=== PATIENT | female | born 1955 | race Caucasian/White ===

== ENCOUNTER → 2018-11-01 | Outpatient (CLI) | payer OTHER | LOC: COL.VAS 12:15 | DX: Z13.6 Encounter for screening for cardiovascular disorders (principal); M79.89 Other specified soft tissue disorders ==

== ENCOUNTER 2021-11-27 07:01 | Day surgery (SDC) | payer MEDICARE, OTHER ==
[~2021-11-27] VITALS: Ht 170.2 cm; Wt 144.0 kg
[2021-11-27 07:42] VITALS: BP 173/100; PULSE 66; TEMP 97.3
[2021-11-27] MEDS ORDERED: PRIL40 PO (07:51)
[2021-11-27 09:00] VITALS: BP 162/86; PULSE 70; TEMP 97.6
[2021-11-27 09:15] VITALS: BP 114/58; BP 160/90; PULSE 62; PULSE 71; TEMP 97
[2021-11-27 09:30] VITALS: BP 107/64; BP 160/86; PULSE 64; PULSE 65
--- NOTE | 2021-11-27 09:55 | NUR ---
0900: Patient arrived back into [facility] following endo procedure. Report received from [facility]. Patient alert and awake. Requesting water and saltines. Vital signs stable. Call light left within reach. Daughter at bedside 0910: MD in to see patient. 0915: Vital signs stable. Tolerating food and drink well. 0930: Patient tolerated food and drink well. Meets discharge criteria went through discharge instructions with patient and family. Questions answered. IV removed without complications. Patient escorted to patient entrance via wheelchair and left in the care of their family.
== END 2021-11-27 09:40 | disposition home or self-care (01) ==
LOC: SDCO 07:01
DX: K59.00 Constipation, unspecified (principal); R19.7 Diarrhea, unspecified; B96.89 Other specified bacterial agents as the cause of diseases classified elsewhere; K64.1 Second degree hemorrhoids; R10.33 Periumbilical pain
CPT/HCPCS: J2405; J2704; J7120